=== PATIENT | female | born 1985 | race Caucasian/White ===

== ENCOUNTER 2019-01-24 19:52 | Emergency (ER) | payer OTHER ==
[2019-01-24 19:56] VITALS: BP 128/85; PULSE 110; TEMP 98.3; BMI 35.4
--- NOTE | 2019-01-24 19:57 | PDOC ---
Rapid Medical Evaluation Time Seen by Provider: 01/24/19 19:55 Medical Evaluation: 01/24/19 19:55 Pt c/o: fell today and now cant bend left 4th finger, hx of sx to hand x 3 Pt on brief exam: unable to flex at pip or dip joint, no visable dislocation Pt ordered for: finger xray Pt to proceed to the Discharge Disposition - Diagnosis Finger injury - Referrals - Patient Instructions - Post Discharge Activity
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
[2019-01-24] MEDS ORDERED: IBUPROFEN 600 MG TABLET (FP) PO ONE (22:00)
== END 2019-01-24 22:04 | disposition home or self-care (01) ==
LOC: JERFT 19:52
DX: F07.81 Postconcussional syndrome (principal); S69.91XA Unspecified injury of right wrist, hand and finger(s), initial encounter; Y07.03 Male partner, perpetrator of maltreatment and neglect; Y93.9 Activity, unspecified; Y04.2XXA Assault by strike against or bumped into by another person, initial encounter; Y93.89 Activity, other specified; Y92.009 Unspecified place in unspecified non-institutional (private) residence as the place of occurrence of the external cause
CPT/HCPCS: 70450-TC; 73140-TC-LT-FY; 84703; 99282-25

== ENCOUNTER 2019-06-01 17:26 | Emergency (ER) | payer OTHER ==
[2019-06-01 17:30] VITALS: BP 119/83; PULSE 99; TEMP 98.4; BMI 19.5
[2019-06-01] MEDS ORDERED: DIPHTH,PERTUSS(ACELL),TET 0.5 ML DISP.SYRIN IM ONE ×2 (18:16→18:17)
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
== END 2019-06-01 18:26 | disposition home or self-care (01) ==
LOC: JERFT 17:26
PROC: 0HQGXZZ Repair Left Hand Skin, External Approach (ICD-10-PCS; principal; 2019-06-01)
DX: S61.012A Laceration without foreign body of left thumb without damage to nail, initial encounter (principal); W26.0XXA Contact with knife, initial encounter
CPT/HCPCS: 90715; 99282-25

== ENCOUNTER 2021-05-27 21:19 | Emergency (ER) | payer OTHER ==
[2021-05-27 21:29] VITALS: BP 119/82; TEMP 98.6; BMI 40.7
[2021-05-27] MEDS ORDERED: CEPHALEXIN MONOHYDRATE 500 MG CAPSULE (UD) PO ONE (22:48)
[2021-05-27] MEDS ORDERED: CEPHALEXIN MONOHYDRATE 500 MG CAPSULE (UD) ONE (22:51)
[2021-05-27 23:23] VITALS: PULSE 98
== END 2021-05-27 23:16 | disposition home or self-care (01) ==
LOC: JERFT 21:19
DX: L03.116 Cellulitis of left lower limb (principal)
CPT/HCPCS: 99283-25

== ENCOUNTER 2022-04-28 13:52 | Emergency (ER) | payer OTHER ==
[2022-04-28 14:00] VITALS: RESP 18; BMI 39.0
[2022-04-28] MEDS ORDERED: SODIUM CHLORIDE 0.9% 500 ML INFUS.BAG IV ONE (16:12)
[2022-04-28 17:19] LABS: BASO % 0.4 % (0-2.0); EOS % 1.2 % (0-4.5); HEMOGLOBIN 12.1 GM/dL (10.7-15.3); LYMPH % 18.7 % (8-40); MCH 25.1 pg (25.7-33.7); MCHC 32.6 g/dl (32.0-36.0); MEAN PLT VOLUME 9.2 fl (7.5-11.1); MONO % 6.9 % (3.8-10.2); NEUT % 72.8 % (42.8-82.8); PLATELET COUNT 339 10^3/uL (134-434); RBC 4.81 M/mm3 (3.60-5.2); RDW 16.9 % (11.6-15.6); WHITE BLOOD COUNT 12.5 K/mm3 (4.0-10.0)
[2022-04-28 17:38] LABS: CALCIUM 8.4 mg/dL (8.5-10.1)
[2022-04-28 17:39] LABS: ALBUMIN 3.1 g/dl (3.4-5.0); BLOOD UREA NITROGEN 15.2 mg/dL (7-18)
[2022-04-28 17:41] LABS: PHOSPHOROUS 3.6 mg/dL (2.5-4.9)
[2022-04-28 17:42] LABS: CREATININE 0.7 mg/dL (0.55-1.3)
[2022-04-28 17:43] LABS: BILIRUBIN,TOTAL 0.3 mg/dL (0.2-1); TOT PROT 6.6 g/dl (6.4-8.2)
[2022-04-28 17:52] VITALS: BP 115/76; TEMP 97.9
[2022-04-28 18:32] VITALS: PULSE 84
== END 2022-04-28 18:36 | disposition home or self-care (01) ==
LOC: JER 13:52
DX: R07.89 Other chest pain (principal)
CPT/HCPCS: 36415; 70450-TC; 80053; 84100; 84443; 84484; 85025; 93005; 93010; 99285-25

== ENCOUNTER 2024-04-22 16:07 | Emergency (ER) | payer OTHER ==
[2024-04-22 16:18] VITALS: BP 127/95; PULSE 116; RESP 22; TEMP 97.5; BMI 35.4
[2024-04-22] MEDS ORDERED: ACETAMINOPHEN 325 MG TABLET (FP) ONE (17:29)
[2024-04-22] MEDS: ACETAMINOPHEN 500 MG TABLET (FP) PO ONE (17:30)
[2024-04-22 17:59] LABS: BASO % 0.6 % (0-2.0); EOS % 0.6 % (0-4.5); HEMATOCRIT 38.3 % (32.4-45.2); HEMOGLOBIN 12.6 GM/dL (10.7-15.3); LYMPH % 11.7 % (8-40); MCH 25.4 pg (25.7-33.7); MCHC 32.8 g/dl (32.0-36.0); MEAN CELL VOLUME 77.6 fl (80-96); MONO % 5.5 % (3.8-10.2); NEUT % 81.6 % (42.8-82.8); PLATELET COUNT 296 10^3/uL (134-434); RBC 4.94 M/mm3 (3.60-5.2); RDW 16.6 % (11.6-15.6); WHITE BLOOD COUNT 13.5 K/mm3 (4.0-10.0)
[2024-04-22 18:18] LABS: CALCIUM 8.7 mg/dL (8.5-10.1)
[2024-04-22 18:19] LABS: ALBUMIN 3.6 g/dl (3.4-5.0); BLOOD UREA NITROGEN 15.4 mg/dL (7-18)
[2024-04-22 18:22] LABS: CREATININE 0.7 mg/dL (0.55-1.3)
[2024-04-22 18:24] LABS: BILIRUBIN,TOTAL 0.4 mg/dL (0.2-1); TOT PROT 6.9 g/dl (6.4-8.2)
[2024-04-22] MEDS ORDERED: LIDOCAINE 2.5%/PRILOCAINE 2.5% (5 Gram/TUBE) TP ONE (18:28)
[2024-04-22] MEDS: LIDOCAINE 2.5%/PRILOCAINE 2.5% 30 GRAM TUBE TP ONE (18:34)
== END 2024-04-22 20:28 | disposition home or self-care (01) ==
LOC: JER 16:07
PROC: 0HQ0XZZ Repair Scalp Skin, External Approach (ICD-10-PCS; principal; 2024-04-22)
DX: S01.01XA Laceration without foreign body of scalp, initial encounter (principal); Y04.0XXA Assault by unarmed brawl or fight, initial encounter
CPT/HCPCS: 36415; 70450-TC; 72125-TC; 80053; 85025; 99284-25

== ENCOUNTER 2024-05-01 21:28 | Emergency (ER) | payer OTHER ==
[2024-05-01 21:35] VITALS: BP 133/99; PULSE 100; RESP 20; TEMP 98.1; BMI 35.4
[2024-05-01] MEDS ORDERED: ALBUTEROL SO4 2.5/IPRATROPIUM 0.5 INH SOL 3 ML VIAL.NEB. NEB ONE (22:02)
== END 2024-05-01 22:47 | disposition home or self-care (01) ==
LOC: JERFT 21:28
DX: Z48.02 Encounter for removal of sutures (principal)
CPT/HCPCS: 99281-25

== ENCOUNTER 2024-05-03 13:04 | Emergency (ER) | payer OTHER ==
[2024-05-03 13:37] VITALS: BP 118/84; PULSE 87; RESP 16; TEMP 97.9; BMI 35.4
[2024-05-03] MEDS ORDERED: ACETAMINOPHEN 500 MG TABLET (FP) ONE (14:18)
[2024-05-03] MEDS ORDERED: IBUPROFEN 600 MG TABLET (FP) PO ONE (14:18)
[2024-05-03] MEDS: IBUPROFEN 600 MG TABLET (FP) PO ONE (14:21)
[2024-05-03] MEDS: ACETAMINOPHEN 500 MG TABLET (FP) PO ONE (14:21)
[2024-05-03] MEDS ORDERED: BACITRACIN ZINC 15 GM TUBE TOPICAL OINTMENT ONE (14:27)
[2024-05-03] MEDS: BACITRACIN ZINC 15 GM TUBE TOPICAL OINTMENT TP ONE (14:44)
== END 2024-05-03 15:44 | disposition home or self-care (01) ==
LOC: JERFT 13:04
DX: S06.0XAA Concussion with loss of consciousness status unknown, initial encounter (principal); S60.511A Abrasion of right hand, initial encounter; M79.651 Pain in right thigh; W01.0XXA Fall on same level from slipping, tripping and stumbling without subsequent striking against object, initial encounter
CPT/HCPCS: 99283-25